=== PATIENT | male | born 1955 | race Caucasian/White ===

== ENCOUNTER 2016-07-22 15:22 | Outpatient (RCR) | payer OTHER ==
[2015-08-14 04:32] VITALS: BP 144/85
[~2016-07-22 15:22] MED LIST: ASPIR LOW81 MG PO; GABAPENTIN100 MG PO; LEVEMIR FLEX100 U/ML SC; NOVOLOG 100U100 U/ML SQ; PERCOCET 325 MG1 TA2 PO
== END 2016-10-20 | disposition home or self-care (01) ==
LOC: CARDREHAB
DX: Z48.812 Encounter for surgical aftercare following surgery on the circulatory system (principal); Z95.5 Presence of coronary angioplasty implant and graft

== ENCOUNTER → 2016-11-23 | Outpatient (CLI) | payer OTHER ==
[2015-08-14 04:32] VITALS: BP 144/85
== END ==
LOC: RAD 07:00
DX: K74.60 Unspecified cirrhosis of liver (principal)

== ENCOUNTER 2018-11-23 15:44 | Emergency (ER) | payer OTHER ==
[~2018-11-23] VITALS: Ht 170.2 cm; Wt 109.3 kg
[2018-11-23] MEDS ORDERED: CLOPIDOGREL (16:27)
[2018-11-23] MEDS ORDERED: NITROSTAT0.3 MG SL (16:28)
[2018-11-23] MEDS ORDERED: ISOSORBIDE MONO10 MG (16:28)
[2018-11-23 16:29] LABS: EOS # 0.2 (0.04-0.40); EOS % 2.7 % (0.0-4.0); HEMATOCRIT 42.8 % (42.0-52.0); HEMOGLOBIN 14.4 g/dL (13.5-18.0); LYMPH# 1.9 (1.50-4.00); MEAN CELL VOLUME 95 fl (78-100); MEAN CORPUSCULAR HEMOGLOBIN 32 pg (27-31); MEAN CORPUSCULAR HGB CONC 34 g/dL (33-37); MEAN PLATELET VOLUME 9.3 fl (7.4-10.4); MONO # 0.7 (0.20-0.80); NEU # 3.5 (1.40-6.50); PLATELET COUNT 93 K/mm3 (130-400); RED BLOOD COUNT 4.53 M/mm3 (4.20-5.60); RED CELL DISTRIBUTION WIDTH 12.8 % (11.5-14.5); WHITE BLOOD COUNT 6.2 K/mm3 (4.8-10.8)
[2018-11-23 17:08] LABS: POTASSIUM 4.4 mmol/L (3.5-5.1); SODIUM 134 mmol/L (136-145)
[2018-11-23 17:09] LABS: ALBUMIN 3.2 g/dL (3.4-4.8); CALCIUM 9.4 mg/dL (8.3-10.5)
[2018-11-23 17:11] LABS: TOTAL PROTEIN 7.4 g/dL (6.2-8.1)
[2018-11-23 17:12] LABS: GLUCOSE 286 mg/dL (75-110)
[2018-11-23 17:13] LABS: TOTAL BILIRUBIN 1.1 mg/dL (0.2-1.2)
[2018-11-23 17:16] LABS: AST-SGOT 25 U/L (5-34)
[2018-11-23 17:17] LABS: D-DIMER 1.69 mg/L FEU (0.15-0.50)
[2018-11-23 17:19] LABS: ALT/SGPT 6 U/L (0-55); CARBON DIOXIDE 18 mmol/L (23-31)
[2018-11-23 17:30] LABS: TROPONIN-I < 0.03 ng/mL (<0.030)
[2018-11-23] MEDS ORDERED: NOVOLOG MIX 70/33 ML SQ ×2 (18:35)
[2018-11-23] MEDS ORDERED: FINASTERIDE5 M1 PO (18:36)
[2018-11-23] MEDS ORDERED: CRESTOR40 MG PO (18:36)
[2018-11-23] MEDS ORDERED: PROSCAR PO (18:36)
[2018-11-23] MEDS ORDERED: MELOXICAM15 MG PO (18:37)
[2018-11-23] MEDS ORDERED: PROPRANOLOL HCL60 M3 PO (18:37)
[2018-11-23] MEDS ORDERED: PRILOSEC OTC20 MG PO (18:38)
[2018-11-23] MEDS ORDERED: LIPITOR 40MG TA40 MG PO (18:39)
[2018-11-23] MEDS ORDERED: ROBAXIN500 MG PO (18:39)
[2018-11-23] MEDS ORDERED: MOBIC7.5 MG PO (18:40)
[2018-11-23] MEDS ORDERED: ISOSORBIDE MONO60 M2 PO (18:41)
[2018-11-23] MEDS ORDERED: AMLODIPINE BESYL5 MG PO (18:41)
[2018-11-23 20:38] VITALS: BP 128/84
== END 2018-11-23 20:38 | disposition home or self-care (01) ==
LOC: ED 15:44
PROVIDERS: Nurse Practitioner Primary Care
DX: I25.10 Atherosclerotic heart disease of native coronary artery without angina pectoris (principal); E11.9 Type 2 diabetes mellitus without complications; I10 Essential (primary) hypertension; I25.2 Old myocardial infarction; I82.409 Acute embolism and thrombosis of unspecified deep veins of unspecified lower extremity; J44.9 Chronic obstructive pulmonary disease, unspecified; Z95.5 Presence of coronary angioplasty implant and graft; Z85.47 Personal history of malignant neoplasm of testis; Z79.02 Long term (current) use of antithrombotics/antiplatelets; Z87.891 Personal history of nicotine dependence; Z79.4 Long term (current) use of insulin; Z90.49 Acquired absence of other specified parts of digestive tract
CPT/HCPCS: Q9967

== ENCOUNTER → 2019-04-03 | Day surgery (SDC) | payer OTHER ==
[~2019-04-03] MED LIST changes: +AMLODIPINE BESYL5 MG PO; +CLOPIDOGREL; +CRESTOR40 MG PO; +FINASTERIDE5 M1 PO; +ISOSORBIDE MONO10 MG; +ISOSORBIDE MONO60 M2 PO; +LIPITOR 40MG TA40 MG PO; +MELOXICAM15 MG PO; +MOBIC7.5 MG PO; +NITROSTAT0.3 MG SL; +NOVOLOG MIX 70/33 ML SQ; +PRILOSEC OTC20 MG PO; +PROPRANOLOL HCL60 M3 PO; +PROSCAR PO; +ROBAXIN500 MG PO
== END ==
LOC: MSO 07:37
DX: H25.12 Age-related nuclear cataract, left eye (principal); H53.2 Diplopia; I10 Essential (primary) hypertension; E11.9 Type 2 diabetes mellitus without complications; Z79.4 Long term (current) use of insulin; Z79.899 Other long term (current) drug therapy; Z88.0 Allergy status to penicillin; Z88.6 Allergy status to analgesic agent; Z91.041 Radiographic dye allergy status
CPT/HCPCS: 00142; J0171; J2250; J2370; J2704; V2632

== ENCOUNTER 2021-04-20 14:39 | Emergency (ER) | payer OTHER ==
[~2021-04-20] VITALS: Ht 170.2 cm; Wt 109.1 kg
[~2021-04-20 14:39] MED LIST changes: +CLOPIDOGREL PO; +INSULIN NOVO100 U/ML SQ; +MOBIC15 M1 PO; +OMEPRAZOLE40 MG PO; -PRILOSEC OTC20 MG PO
[2021-04-20 14:56] VITALS: BP 116/66
[2021-04-20] MEDS ORDERED: ISOSORBIDE MONO60 M2 PO (15:16)
[2021-04-20] MEDS ORDERED: PROPRANOLOL HYD60 M1 PO (15:17)
== END 2021-04-20 16:24 | disposition home or self-care (01) ==
LOC: ED 14:39
DX: S61.211A Laceration without foreign body of left index finger without damage to nail, initial encounter (principal); S61.213A Laceration without foreign body of left middle finger without damage to nail, initial encounter; K85.90 Acute pancreatitis without necrosis or infection, unspecified; I25.10 Atherosclerotic heart disease of native coronary artery without angina pectoris; I10 Essential (primary) hypertension; J44.9 Chronic obstructive pulmonary disease, unspecified; K21.9 Gastro-esophageal reflux disease without esophagitis; E66.9 Obesity, unspecified; F17.200 Nicotine dependence, unspecified, uncomplicated; Z95.5 Presence of coronary angioplasty implant and graft; Z23 Encounter for immunization; Z68.37 Body mass index [BMI] 37.0-37.9, adult; Z79.82 Long term (current) use of aspirin; Z79.899 Other long term (current) drug therapy; W31.2XXA Contact with powered woodworking and forming machines, initial encounter; Y92.009 Unspecified place in unspecified non-institutional (private) residence as the place of occurrence of the external cause; Y99.0 Civilian activity done for income or pay
CPT/HCPCS: 90715

== ENCOUNTER 2021-04-24 18:06 | Observation (INO) | payer OTHER ==
[~2021-04-24] VITALS: Ht 170.2 cm; Wt 102.3 kg
[~2021-04-24 18:06] MED LIST changes: +PROPRANOLOL HYD60 M1 PO
[2021-04-24 18:45] LABS: BASO # 0.03 K/mm3 (0.02-0.10); EOS # 0.14 K/mm3 (0.04-0.40); EOS % 2.2 % (0.0-4.0); HEMOGLOBIN 14.1 g/dL (13.5-18.0); LYMPH# 1.25 K/mm3 (1.50-4.00); MEAN CELL VOLUME 93 fl (78-100); MEAN CORPUSCULAR HEMOGLOBIN 33 pg (27-31); MEAN CORPUSCULAR HGB CONC 35 g/dL (33-37); MEAN PLATELET VOLUME 10.1 fl (7.4-10.4); MONO # 0.63 K/mm3 (0.20-0.80); PLATELET COUNT 80 K/mm3 (130-400); RED BLOOD COUNT 4.32 M/mm3 (4.20-5.60); RED CELL DISTRIBUTION WIDTH 12.5 % (11.5-14.5); WHITE BLOOD COUNT 6.4 K/mm3 (4.8-10.8)
[2021-04-24 18:55] LABS: ALBUMIN 3.4 g/dL (3.4-4.8); POTASSIUM 5.1 mmol/L (3.5-5.1); SODIUM 132 mmol/L (136-145)
[2021-04-24 18:56] LABS: CALCIUM 9.5 mg/dL (8.3-10.5)
[2021-04-24 18:57] LABS: TOTAL PROTEIN 7.5 g/dL (6.2-8.1)
[2021-04-24 18:58] LABS: CARBON DIOXIDE 19 mmol/L (23-31)
[2021-04-24 18:59] LABS: TOTAL BILIRUBIN 1.3 mg/dL (0.2-1.2)
[2021-04-24 19:02] LABS: AST-SGOT 18 U/L (5-34)
[2021-04-24 19:04] LABS: ALT/SGPT < 6 U/L (0-55)
[2021-04-24 19:05] LABS: GLUCOSE 413 mg/dL (75-110)
[2021-04-24 19:06] LABS: LIPASE 104 U/L (8-78)
[2021-04-24 19:39] LABS: URINE APPEARANCE CLEAR; URINE BILIRUBIN NEGATIVE (NEGATIVE); URINE BLOOD NEGATIVE (NEGATIVE); URINE COLOR YELLOW; URINE KETONE NEGATIVE (NEGATIVE); URINE LEUKOCYTE ESTERASE NEGATIVE (NEGATIVE); URINE NITRATE NEGATIVE (NEGATIVE); URINE PROTEIN(semi-quant) NEGATIVE (NEGATIVE); URINE UROBILINOGEN NORMAL (NORMAL); URINE WBC 0-1 /hpf (0-3)
[2021-04-24 22:51] VITALS: BP 143/81
[2021-04-25] MEDS ORDERED: PROAIR HFA0.09 MG/AC IH
[2021-04-25] MEDS ORDERED: FINASTERIDE5 M1 PO (00:02)
[2021-04-25] MEDS ORDERED: STRIVERDI2.5 MCG/Ac IH (00:04)
[2021-04-25] MEDS ORDERED: ACETAMINOPHEN500 M5 PO (00:06)
[2021-04-25 06:09] VITALS: BP 125/72
[2021-04-25 07:48] LABS: BASO # 0.04 K/mm3 (0.02-0.10); EOS # 0.08 K/mm3 (0.04-0.40); EOS % 1.2 % (0.0-4.0); HEMATOCRIT 42.8 % (42.0-52.0); HEMOGLOBIN 14.6 g/dL (13.5-18.0); LYMPH# 0.85 K/mm3 (1.50-4.00); MEAN CELL VOLUME 95 fl (78-100); MEAN CORPUSCULAR HEMOGLOBIN 32 pg (27-31); MEAN CORPUSCULAR HGB CONC 34 g/dL (33-37); MEAN PLATELET VOLUME 9.6 fl (7.4-10.4); NEU # 5.11 K/mm3 (1.40-6.50); PLATELET COUNT 70 K/mm3 (130-400); RED BLOOD COUNT 4.52 M/mm3 (4.20-5.60); RED CELL DISTRIBUTION WIDTH 12.6 % (11.5-14.5); WHITE BLOOD COUNT 6.9 K/mm3 (4.8-10.8)
[2021-04-25 07:56] LABS: ALBUMIN 3.2 g/dL (3.4-4.8); POTASSIUM 4.5 mmol/L (3.5-5.1); SODIUM 136 mmol/L (136-145)
[2021-04-25 07:58] LABS: CALCIUM 8.8 mg/dL (8.3-10.5)
[2021-04-25 07:59] LABS: GLUCOSE 175 mg/dL (75-110); TOTAL PROTEIN 7.1 g/dL (6.2-8.1)
[2021-04-25 08:00] LABS: CARBON DIOXIDE 21 mmol/L (23-31)
[2021-04-25 08:01] LABS: TOTAL BILIRUBIN 1.7 mg/dL (0.2-1.2)
[2021-04-25 08:04] LABS: AST-SGOT 17 U/L (5-34)
[2021-04-25 08:11] LABS: ALT/SGPT < 6 U/L (0-55)
[2021-04-25 09:48] LABS: LIPASE 28 U/L (8-78)
[2021-04-25 10:00] VITALS: BP 133/81
[2021-04-25 14:00] VITALS: BP 122/80
[2021-04-25] MEDS ORDERED: ENOXAPARIN40 MG/0.1 SQ (17:33)
[2021-04-25] MEDS ORDERED: NOVOLOG 100U100 U/ML SQ (17:33)
[2021-04-25] MEDS ORDERED: MORPHINE 10M10 MG/ML IV (17:33)
[2021-04-25 18:00] VITALS: BP 105/59
[2021-04-25 21:03] VITALS: BP 107/66
== END 2021-04-25 21:05 ==
LOC: ED 18:06 → MED/SURG 22:36
PROVIDERS: ADMIT Family Medicine
DX: K85.90 Acute pancreatitis without necrosis or infection, unspecified (principal); E11.65 Type 2 diabetes mellitus with hyperglycemia; E86.9 Volume depletion, unspecified; I10 Essential (primary) hypertension; I73.9 Peripheral vascular disease, unspecified; Z95.818 Presence of other cardiac implants and grafts; Z95.828 Presence of other vascular implants and grafts; Z87.891 Personal history of nicotine dependence; Z79.4 Long term (current) use of insulin; Z79.02 Long term (current) use of antithrombotics/antiplatelets
CPT/HCPCS: G0378; J0696; J1650; J1815; J2270; J2405; J3490; J7030; Q9967